=== PATIENT | female | born 1995 | race Caucasian/White ===

== ENCOUNTER 2021-09-26 01:44 | Inpatient (IN) | payer OTHER, SELFPAY ==
[2021-09-26] VITALS (168 sets, daily range): BP systolic 85–140; BP diastolic 35–102; PULSE 48–120; RESP 16; TEMP 36.4–36.8; O2SAT 93–100; BMI 32.8
[2021-09-26] MEDS: LACTATED RINGERS 1,000 ML 125 ML IV CONT ×2 (02:05→03:19)
[2021-09-26 02:16] LABS: Basophils Absolute Auto 0.1 K/mm3 (0.0-0.1); Basophils Percent Auto 0.6 % (0.2-1.2); Eosinophils Absolute Auto 0.1 K/mm3 (0-0.3); Hematocrit 43.6 % (37.0-47.0); Hemoglobin 14.9 g/dL (12.0-15.0); Immature Granulocyte Percent A 2.4 % (0-0.5); Lymphocytes Percent Auto 18.4 % (18.3-44.2); Mean Corpuscular HGB Conc 34.2 g/dl (32-36); Mean Corpuscular Volume 87.9 fl (80-100); Mean Platelet Volume 10.2 fl (7.4-10.4); Monocytes Absolute Auto 0.9 K/mm3 (0.1-0.6); Monocytes Percent Auto 7.1 % (2.6-8.5); Neutrophils Absolute Auto 8.8 K/mm3 (1.3-6.7); Neutrophils Percent Auto 70.5 % (45.5-73.1); Platelet Count Result 174 k/mm3 (150-375); Red Blood Count 4.96 M/mm3 (4.2-5.4); Red Cell Distribution Width 12.5 % (11.5-14.5); White Blood Count 12.5 K/mm3 (4.5-10.0)
--- NOTE | 2021-09-26 02:19 | WPDANESEPP ---
Anes - Eval Pre Procedure Procedure: Labor Epidural Date/Time: 09/26/21 02:19 Pre Op Diagnosis: Leaking Patient Data Age: 26 Gender: F Height: Weight: Allergies Allergy/AdvReac Type Severity Reaction Status Date / Time No Known Allergies Allergy Verified 09/06/21 13:30 Home Medications Medication Instructions Recorded Confirmed Type prenat.vits,mally,syi-vwhm-claaw 1 tablet PO DAILY 09/06/21 09/06/21 History Laboratory Tests 09/26/21 09/26/21 02:11 02:11 WBC 12.5 K/mm3 H K/mm3 (4.5-10.0) RBC 4.96 M/mm3 M/mm3 (4.2-5.4) Hgb 14.9 g/dL g/dL (12.0-15.0) Hct 43.6 % % (37.0-47.0) MCV 87.9 fl fl (80-100) MCH 30.0 pg pg (26-34) MCHC 34.2 g/dl g/dl (32-36) RDW 12.5 % % (11.5-14.5) Plt Count 174 k/mm3 k/mm3 (150-375) MPV 10.2 fl fl (7.4-10.4) Immature Gran % (Auto) 2.4 % H % (0-0.5) Neut % (Auto) 70.5 % % (45.5-73.1) Lymph % (Auto) 18.4 % % (18.3-44.2) [place] % (Auto) 7.1 % % (2.6-8.5) Eos % (Auto) 1.0 % % (0-4.4) Baso % (Auto) 0.6 % % (0.2-1.2) Lymph # (Auto) 2.30 K/mm3 K/mm3 (0.9-3.2) [place] # (Auto) 0.9 K/mm3 H K/mm3 (0.1-0.6) Eos # (Auto) 0.1 K/mm3 K/mm3 (0-0.3) Baso # (Auto) 0.1 K/mm3 K/mm3 (0.0-0.1) Abs Immat Gran (auto) 0.30 K/mm3 H K/mm3 (0.00-0.031) Absolute Neuts (auto) 8.8 K/mm3 H K/mm3 (1.3-6.7) Absolute Nucleated RBC 0.0 K/mm3 K/mm3 (0.0-0.012) Nucleated RBC % 0.0 % % (0.0-0.2) RPR Pending Patient hx anesthesia problems: none Family hx anesthesia problems: none Results Review: All pre-operative results and documents have been reviewed as part of the pre-operative evaluation. [facility] Family History Family History Mother Hypertension Grandparent Diabetes mellitus Cerebrovascular accident Social History Social History Substance use: never Spiritual care concerns: No Exam Day of Procedure 09/26/21 02:19 Patient weight: obese Heart: regular rate and rhythm Lungs: normal air movement Airway: Mallampati scale Neurological: alert and oriented
--- NOTE | 2021-09-26 02:21 | LDADM ---
This patient, Diamond Marina, was admitted to Labor/Delivery/Recovery 105 on 09/26/21 at 01:44. Plans for labor, pain management and were discussed with patient. Patient/family oriented to hospital policies and general routines including ID bracelet, bed and alarms, visiting hours, pain management, procedures, bathroom and other care routines, personal items, smoking policy, room service/diet and guest tray routines, infant security routines, and visiting hours. Patient/Family are encouraged to report perceived risks to care and to ask questions if they do not understand what they are told or what they should do. See OBIX for further documentation.
[2021-09-26 07:52] LABS: Rapid Plasma Reagin Non-Reactive (NonReactive)
--- NOTE | 2021-09-26 08:37 | PM.IMHP ---
H&P: HPI History of Present Illness Date/Time: 09/26/21 08:37 Chief Complaint: Intrauterine at term Narrative: 26 yo at 39w2d who presents in labor. Pt presented withe regular contractions. Pt had SROM around 0100. Her has been uncomplicated thus far. Review of Systems Cardiovascular: Cardiovascular: Denies chest pain, Denies leg edema, Denies palpitations, Denies dyspnea and Denies dyspnea on exertion Respiratory: Respiratory: Denies cough, Denies dyspnea and Denies dyspnea on exertion Gastrointestinal: Gastrointestinal: Denies abdominal pain, Denies constipation, Denies diarrhea, Denies nausea and Denies vomiting Genitourinary: Genitourinary: Denies hematuria, Denies urinary frequency, Denies dysuria, Denies pelvic pain, Denies urinary incontinence and Denies vaginal discharge Neurologic: Reports system reviewed and no additional complaints, except as documented Psychiatric: Psychiatric: Reports no additional psychiatric complaints Endocrine: Endocrine: Denies palpitations PMFSH Family History Family History Mother Hypertension Grandparent Diabetes mellitus Cerebrovascular accident Social History Social History Smoking status: Never smoker Substance use: never Spiritual care concerns: No Meds Home Medications and Allergies Home Medications Medication Instructions Recorded Confirmed Type prenat.vits,mally,hps-djbn-gxmdr 1 tablet PO DAILY 09/06/21 09/06/21 History Allergies Allergy/AdvReac Type Severity Reaction Status Date / Time No Known Allergies Allergy Verified 09/06/21 13:30 Vital Signs Vital Signs - 24 hr 09/26/21 02:24 09/26/21 02:25 09/26/21 02:26 Temperature Pulse Rate 69 66 Blood Pressure 140/96 H 131/84 Pulse Oximetry 96 Oxygen Delivery 09/26/21 02:29 09/26/21 02:30 09/26/21 02:32 Temperature Pulse Rate 78 63 Blood Pressure 117/99 H 122/69 Pulse Oximetry 97 Oxygen Delivery 09/26/21 02:34 09/26/21 02:36 09/26/21 02:38 Temperature Pulse Rate 70 64 67 Blood Pressure 130/72 127/70 108/63 Pulse Oximetry 98 Oxygen Delivery 09/26/21 02:39 09/26/21 02:42 09/26/21 02:44 Temperature Pulse Rate 63 62 Blood Pressure 117/62 109/60 Pulse Oximetry 99 100 Oxygen Delivery 09/26/21 02:45 09/26/21 02:48 09/26/21 02:49 Temperature Pulse Rate 55 L 54 L Blood Pressure 115/53 L 102/51 L Pulse Oximetry 98 Oxygen Delivery 09/26/21 02:51 09/26/21 02:54 09/26/21 02:55 Temperature Pulse Rate 56 L 63 Blood Pressure 110/56 L 95/50 L Pulse Oximetry 97 Oxygen Delivery 09/26/21 02:57 09/26/21 02:59 09/26/21 03:00 Temperature Pulse Rate 55 L 62 Blood Pressure 91/39 L 95/46 L Pulse Oximetry 95 Oxygen Delivery 09/26/21 03:04 09/26/21 03:09 09/26/21 03:14 Temperature Pulse Rate Blood Pressure Pulse Oximetry 96 96 98 Oxygen Delivery 09/26/21 03:16 09/26/21 03:19 09/26/21 03:24 Temperature Pulse Rate 54 L Blood Pressure 93/41 L Pulse Oximetry 97 98 Oxygen Delivery 09/26/21 03:29 09/26/21 03:31 09/26/21 03:34 Temperature Pulse Rate 53 L Blood Pressure 85/35 L Pulse Oximetry 97 96 Oxygen Delivery 09/26/21 03:39 09/26/21 03:44 09/26/21 03:45 Temperature Pulse Rate 50 L Blood Pressure 96/50 L Pulse Oximetry 96 95 Oxygen Delivery 09/26/21 03:49 09/26/21 03:54 09/26/21 03:59 Temperature Pulse Rate Blood Pressure Pulse Oximetry 93 98 95 Oxygen Delivery 09/26/21 04:00 09/26/21 04:04 09/26/21 04:09 Temperature Pulse Rate 53 L Blood Pressure 96/49 L Pulse Oximetry 96 93 Oxygen Delivery 09/26/21 04:14 09/26/21 04:16 09/26/21 04:19 Temperature Pulse Rate 53 L Blood Pressure 90/56 L Pulse Oximetry 97 97 Oxygen Delivery 0
[2021-09-26] MEDS: OXYTOCIN 30 UNITS/NS 500 ML 30 UNITS/500 ML BAG 999 UNITS IV CONT (10:38)
--- NOTE | 2021-09-26 10:50 | PM.OBPRVD ---
OB - Delivery Note Procedure Procedure: Patient pushed for a spontaneous vaginal delivery. The fetus was delivered atraumatically and placed on the maternal abdomen. The cord was clamped and cut after 1 minute of life. The cord was double clamped and cut and a segment of cord was collected for cord gases. Cord blood was collected for blood type and Coomb's testing. The placenta delivered spontaneously and was noted to be intact. The perineum was inspected and there was a 2nd degree perineal laceration. The laceration was repaired with 2-0 vicryl in the usual fashion. The uterus was firm and good hemostasis was noted. The patient and fetus were stable in the delivery room. Delivery monitor: External FHT Route of delivery: Episiotomy description: None Laceration Description: Perineal - 2nd Degree Delivery repair: vicryl Specimen: No Quantitative Blood Loss (ml): 150 Anesthesia type: Epidural Disposition: Floor () Complications: No immediate complications Baby Date of : 09/26/21 Time of : 10:37 Weeks of gestation at delivery: 39 Infant gender: Female Weight (pounds): 8 Weight (ounces): 5 presentation: vertex position: Right Occiput Anterior Placenta delivery description: Spontaneous Cord Vessel Description: 3 Vessels score one minute: 7 score five minutes: 9
--- NOTE | 2021-09-26 14:00 | PC.NURSE ---
Patient transferred to post room #292 via wheelchair. Support person present. Oriented to unit, room, information board, rooming in, admission packet and security measures. Patient verbalizes understanding.
[2021-09-26] MEDS: IBUPROFEN 600 MG TABLET PO ×2 (14:27→23:01)
[2021-09-26] MEDS: BENZOCAINE 20% AER SPR (*SP) 56 GM CAN 1 SPRAY TOPICAL (14:28)
[2021-09-26] MEDS: LANOLIN (LANSINOH) 7.5 GM CREAM 1 APPLIC TOPICAL (14:28)
[2021-09-26] MEDS: WITCH HAZEL 40 PADS 1 PAD TOPICAL (14:28)
[2021-09-27] MEDS: ACETAMINOPHEN 325 MG TABLET 650 MG PO (03:00)
[2021-09-27 05:32] LABS: Hematocrit 36.9 % (37.0-47.0); Hemoglobin 12.8 g/dL (12.0-15.0)
--- NOTE | 2021-09-27 06:25 | WPDANLDPN2 ---
Anes-Prog Note L&D Date/Time: 09/27/21 06:25 Comfortable throughout: labor and delivery Neuraxial method: epidural Epidural/Spinal procedure site: clean & non-tender Neuro status: Neuro function grossly intact. Cardiovascular status: normal Respiratory status: normal Airway patency: baseline Mental status: baseline Post-Op hydration status: normal Vital Signs: Last Vital Signs Temp 36.7 C 09/26/21 20:35 Pulse 58 L 09/26/21 20:35 Resp 16 09/26/21 20:35 BP 132/86 09/26/21 20:35 Pulse Ox 98 09/26/21 17:00 O2 Del Method Room Air 09/26/21 02:49 Pain score (VAS): 0 I/O: Intake & Output 09/26/21 09/26/21 09/27/21 15:59 23:59 07:59 Intake Total 240 500 Balance 240 500 Post-procedural complaints: none Patient feedback: Patient satisfied with anesthetic care.
[2021-09-27 07:20] VITALS: BP 131/89; PULSE 64; RESP 16; TEMP 36.8; O2SAT 100
[2021-09-27] MEDS: IBUPROFEN 600 MG TABLET PO ×2 (07:28→13:58)
--- NOTE | 2021-09-27 07:48 | PM.OBPNVD ---
OB - PN: Subj Subjective Date/time seen: 09/27/21 07:48 Patient comments: no complaints, pain well controlled and tolerating diet Pierre feeding status: exclusively breast feeding Narrative: patient doing well this AM. No complaints. Pain is well controlled. She reports minimal bleeding. She is ambulating and voiding without difficulty. She is tolerating PO. She denies N/V, fever, chills. OB - PN: Obj Data Labs CBC & Chem 7: 09/27/21 03:06 Labs: Laboratory Results - last 24 hr 09/26/21 09/27/21 02:11 03:06 Hgb 12.8 Hct 36.9 L RPR Non-reactive OB - PN A/P Plan day: 1 Plan: routine care Comments: patient doing well H/H stable continue routine care Time Spent With Patient Time: Total time spent is greater than 50% in coordination of care (as documented) at patient's floor/unit and/or counseling patient: Time with patient: less than 15 minutes Review of Systems Review of Systems: All systems reviewed & are unremarkable except as noted in HPI and below Exam Const: General: comfortable and no acute distress Resp: Effort & Inspection: normal respiratory effort Cardio: Rate: regular rate GI: GI Palp: Yes Soft to palpation and No Tenderness to palpation present (GI) Auscultation: normal bowel sounds Other: fundus firm and below umbilicus. Psych: Affect: normal affect
[2021-09-27] MEDS: DOCUSATE SODIUM 100 MG CAPSULE PO ×2 (09:02→16:59)
[2021-09-27] MEDS: MULTIVIT/MIN/PREN/FOL AC/IRON TABLET 1 TAB PO (09:02)
--- NOTE | 2021-09-27 12:10 | PC.NURSE ---
[id number] Introductions were made, then consulted with patient to assess needs related to . Mother led the conversation with her experience feeding her so far. Mother works well with her . Encouraged understanding of the benefits of skin to skin (unwrapping infant and placing vertically on her chest), responsive feeding and how to watch for early feeding signs, frequency of feeding on demand about every 8-12 times in 24 hours (every 2-3 hours), milk production, duration of feeding, signs of adequate intake/output and how to record on the feeding sheet. Resources used to facilitate learning were used with the mom and baby guide. Mother voiced understanding of responsive feedings, stimulating with skin to skin and encouraging to breastfeed if it has been 2 - 2 1/2 hours since the start of the last , to call if does not latch or there is discomfort with . Reported to the primary RN.
--- NOTE | 2021-09-27 12:34 | P.DS_ITS ---
DS: Admitting Diagnosis Discharge Date 09/28/21 Admitting Diagnosis intrauterine at term OB - DS: Summary Hospital Course Hospital Course: 26 yo who presented at 39w for elective IOL. Pt progressed to complete and had an uncomplicated vaginal delivery. Her course was uncomplicated and she was d/c home on PPD #2. OB Procedures : None OB Procedures Intrapartum: Spontaneous Vag Delivery OB Procedures: : None Status at Discharge Functional status at discharge: independent ambulation Overall status at discharge: patient is back to baseline Time Spent with Patient Time attestation: Total time spent providing and/or coordinating discharge services: Time spent: Less than 30 minutes Exam Const: General: comfortable and no acute distress Resp: Effort & Inspection: normal respiratory effort Auscultation: clear to auscultation bilaterally Cardio: Rate: regular rate GI: GI Palp: Yes Soft to palpation Auscultation: normal bowel sounds Other: Fundus firm below umbilicus Psych: Appearance: grossly normal Mental Status: mental status grossly normal Affect: normal affect DS: Data Data Completed and Pending Labs on day of discharge: Labs from last 24 hours 09/27/21 03:06 Hgb 12.8 Hct 36.9 L Discharge Plan Discharge Discharging Clinician: Ronak Mak Patient Disposition: Home, Self-Care Activity: as tolerated and pelvic rest Diet: regular Patient Instructions: Antibiotic Form, Vaginal Delivery (DC) Stand Alone Forms: General Discharge Information Follow-up/Referrals: Rico Manning MD [Physician] - Discharge Medications: New acetaminophen [Mapap (acetaminophen)] 325 mg Tablet 650 mg PO Q6H PRN (Reason: Mild Pain (1-3) Or Headache) Qty: 30 0RF ibuprofen 600 mg Tablet 600 mg PO Q6H PRN (Reason: Cramping) Qty: 30 0RF Continued #2 Tablet 1 tablet PO DAILY Date of admission: 09/26/21 01:44 Primary Care Provider: PHYSICIAN,DRIER OPERATOR Admitting Provider: Rico Manning Attending physician on admission: Rico Manning Condition: Stable
--- NOTE | 2021-09-27 14:02 | PC.NURSE ---
[phone] RN called to the room to consult with patient to assess needs related to . Mother led conversation with her experience with feeding baby so far and is tearful regarding not getting her infant to calm down to eat. Mother and baby are both in tears. Mother works well with her with encouragement. Encouraged understanding the benefits of skin to skin to organize and calm infant. Education given to mother on hand expression and finger feeding infant colostrum to help calm and encourage going to the breast. Mother demonstrates understanding and voiced recognizing infants feeding cues and RN reviewed the early feeding cues rather than waiting until the last cue of crying. Mother voiced understanding of responding to feeding cues, frequencies of feeding 8-12 times in 24 hours (approximately 2-3 hours), duration of feedings, milk production, intake/output feeding sheet and signs of adequate intake encouraging swallowing at the breast. Reviewed positioning and alignment, supporting breast, off-centered (asymmetrical latch) and leading with the chin with big open wide gape. latched optimally to the left breast in football position suck /swallowing ratios adequate heard and visualized. Infant detached, then assisted to the right breast using football position. Education given to mother of how to visualize suck/swallow ratios and drinking at the breast. Infant was able to maintain latch without discomfort to mother. Nipple care reviewed with optimal latch, good positioning, and to have clean hands when touching the nipple/breast as needed. Resources used to facilitate learning were used from the visual handout/ tool/mom and baby guide. Mother voiced understanding of the education shared, calling for assistance if the infant does not latch or if there is discomfort with . Reported to the primary RN.
[2021-09-27 19:00] VITALS: BP 119/74; PULSE 63; RESP 18; TEMP 36.3
[2021-09-28] MEDS: IBUPROFEN 600 MG TABLET PO (04:13)
[2021-09-28 08:45] VITALS: BP 121/72; PULSE 61; RESP 16; TEMP 36.2; O2SAT 100
[2021-09-28] MEDS: ACETAMINOPHEN 325 MG TABLET 650 MG PO (09:35)
[2021-09-28] MEDS: MULTIVIT/MIN/PREN/FOL AC/IRON TABLET 1 TAB PO (09:36)
[2021-09-28] MEDS: DOCUSATE SODIUM 100 MG CAPSULE PO (09:36)
--- NOTE | 2021-09-28 13:50 | PC.NURSE ---
Patient left unit ambulatory with baby and spouse. Discharge instructions reviewed. Car seat check complete. Follow ups confirmed
[2021-10-01 11:31] VITALS: BP 127/79; PULSE 69; RESP 16; TEMP 36.7; O2SAT 99
== END 2021-09-28 13:50 | disposition home or self-care (01) | DRG 807 ==
LOC: ANHLDR 02:09 → ANHOB2 09-27 10:14 → ANHLDR 10-01 08:16 → ANHOB2 10-01 08:16
PROVIDERS: Admitting Provider Obstetrics & Gynecology; Visit Provider Student in an Organized Health Care Education/Training Program
DX: O70.1 Second degree perineal laceration during delivery (principal); Z37.0 Single live birth; Z3A.39 39 weeks gestation of pregnancy; O36.8330 Maternal care for abnormalities of the fetal heart rate or rhythm, third trimester, not applicable or unspecified
CPT/HCPCS: 36415; 85014; 85018; 85025; 86592; 86850; 86900; 86901; A9270; J2590; J2795; J7120